=== PATIENT | male | born 1970 | race Caucasian/White ===

== ENCOUNTER 2018-01-19 11:05 | Emergency (ER) | payer BC ==
--- NOTE | 2018-01-19 13:01 | UC ---
General HPI - HPI Summary HPI Summary: pt had his symbicort d/c about 1 month ago by his pcp. he has had increasing cough and chest congestion since with some sob. denies cp but notes throat sore and voice hoarse from the cough. subjective fever. using his albuterol up to 6x' s daily. also notes flare of his low back and L knee pain. no acute injury, taking mobic and would like PT referal. - History of Current Complaint Stated Complaint: SORE THROAT Time Seen by Provider: 01/19/18 12:45 Hx Obtained From: Patient, Family/Gold Stamper Onset/Duration: Gradual Onset Timing: Constant Aggravating: nothing Alleviating: nothing Associated Signs & Symptoms: Positive: Back Pain - chronic, Cough. Negative: Abdominal Pain, Chest Pain, Fever - Allergy/Home Medications Home Medications: Home Medications Acetaminophen [Pain Relief] 1,000 mg PO Q4H PRN 01/19/18 [History Confirmed 03/03] Albuterol HFA INHALER* [Ventolin HFA Inhaler*] 2 puff INH Q4H PRN 01/19/18 [ History Confirmed 01/19/18] Cyclobenzaprine TAB* [Flexeril 10 MG TAB*] 10 mg PO SEE INSTRUCTIONS PRN [History Confirmed 01/19/18] Lidocaine 5% OINT* [Lidocaine*] 5 % EX SEE INSTRUCTIONS PRN 01/19/18 [History Confirmed 01/19/18] Melatonin 5 mg PO BEDTIME PRN 01/19/18 [History Confirmed 01/19/18] Meloxicam 7.5 mg PO BID 01/19/18 [History Confirmed 01/19/18] Terbinafine HCl 250 mg PO SEE INSTRUCTIONS 01/19/18 [History Confirmed 01/19/18] PMH/Surg Hx/FS Hx/Imm Hx - Additional Past Medical History Additional PMH: reactive airways disease, OA, chronic low back and L knee pain. - Surgical History Surgical History: Yes - back, L knee - Family History Known Family History: Positive: Other - [place] - Social History Occupation: Employed Full-time Lives: With Family Substance Use Type: None - Immunization History Vaccination Up to Date: Yes Review of Systems Constitutional: Negative Skin: Negative Eyes: Negative ENT: Sore Throat - from cough Respiratory: Shortness Of Breath, Cough Cardiovascular: Negative Gastrointestinal: Negative Genitourinary: Negative Motor: Negative Neurovascular: Negative Musculoskeletal: Arthralgia - low back, L knee Neurological: Negative Psychological: Negative Is Patient Immunocompromised?: No All Other Systems Reviewed And Are Negative: Yes Physical Exam Triage Information Reviewed: Yes Appearance: Well-Appearing Vital Signs Reviewed: Yes Eyes: Positive: Conjunctiva Clear ENT: Positive: Normal ENT inspection Neck: Positive: Supple, Nontender, No Lymphadenopathy Respiratory: Positive: Lungs clear, Decreased breath sounds, Other: - bronchospastic cough Cardiovascular: Positive: RRR, No Murmur Abdomen Description: Positive: Nontender, No Organomegaly, Soft. Negative: Distended, Guarding Bowel Sounds: Positive: Present Musculoskeletal: Positive: Other: - post op scar low back with paraspinal mm tenderness in lumbar region. spine non tender. no saddle anrsthesia. 5/5 strength and 2+ reflexes x4. L knee scar but no swelling, warmth or discoloration. generalized tenderness. LLE s/v/m intact. Neurological: Positive: Alert Psychological: Positive: Age Appropriate Behavior Skin Exam: Normal Course/Dx - Course Course Of Treatment: flare of chronic back and knee pain thus will refer to pt. RAD flare, will tx with steroid. nothing to indicate bacterial infection. - Differential Dx - Multi-Symptom Provider Diagnoses: Falre of reactive airways disease. flare of chronic low bacvk and L knee pain Discharge - Sign-Out/Discharge Documenting (check all that apply): Discharge/Admit/Transfer - Discharge Plan Condition: Stable Disposition: HOME Prescriptions: predniSONE TAB* [Deltasone TAB*] 40 mg PO DAILY 5 Days #10 tab Patient Education Materials: Reactive Airways Disease (ED), Chronic Pain (ED) Referrals: Debra Rodriguez MD [Primary Care Provider] - 7 Days Additional Instructions: USE ALBUTEROL INHALER 2 PUFFS EVERY 6 HOURS - Billing Disposition and Condition Condition: STABLE Disposition: HOME
[2018-01-19 13:22] VITALS: BP 147/94
== END 2018-01-19 13:38 | disposition home or self-care (01) ==
LOC: UCCORT 11:05
DX: J45.909 Unspecified asthma, uncomplicated (principal); M54.5 Low back pain; M25.562 Pain in left knee
CPT/HCPCS: 99202; G0463

== ENCOUNTER 2018-11-11 09:22 | Emergency (ER) | payer BC, OTHER ==
[2018-11-11 09:57] VITALS: BP 133/73
--- NOTE | 2018-11-11 10:14 | UC ---
UC General HPI - HPI Summary HPI Summary: DAY 3 OF COUGH, SOB AND WHEEZING. TODAY FEELS WARM. + BODYACHES AND THROAT JUST STARTED TO FEEL SCRATCHY. + HX ASTHMA. USING RESCUE INHALER AND NEBULIZER. - History of Current Complaint Chief Complaint: UCRespiratory Stated Complaint: COUGH,CHEST CONGESTION Time Seen by Provider: 11/11/18 10:09 Hx Obtained From: Patient Onset/Duration: Gradual Onset Timing: Constant Pain Intensity: 2 Associated Signs & Symptoms: Negative: Chest Pain - Allergy/Home Medications Allergies/Adverse Reactions: Allergies Allergy/AdvReac Type Severity Reaction Status Date / Time No Known Allergies Allergy Verified 11/11/18 09:50 Home Medications: Home Medications Fluticasone-Salmeterol 250-50* [Advair Diskus 250-50*] 2 puff INH BID 11/11/18 [ History Confirmed 11/11/18] Meloxicam 5 mg PO BID 11/11/18 [History Confirmed 11/11/18] PMH/Surg Hx/FS Hx/Imm Hx Respiratory History: Asthma - Surgical History Surgical History: Yes Surgery Procedure, Year, and Place: L3-L5 spinal fusion. L knee x3 - Family History Known Family History: Positive: Other - [place] - Social History Occupation: Employed Full-time Alcohol Use: Occasionally Substance Use Type: None Smoking Status (MU): Never Smoked Tobacco - Immunization History Vaccination Up to Date: Yes Review of Systems All Other Systems Reviewed And Are Negative: Yes Constitutional: Positive: Negative Skin: Positive: Negative Eyes: Positive: Negative ENT: Negative: Ear Ache, Sinus Congestion Cardiovascular: Positive: Negative Gastrointestinal: Positive: Negative Genitourinary: Positive: Negative Motor: Positive: Negative Neurovascular: Positive: Negative Musculoskeletal: Positive: Myalgia Neurological: Positive: Negative Psychological: Positive: Negative Physical Exam Triage Information Reviewed: Yes Appearance: Well-Appearing Vital Signs: Initial Vital Signs Temp 97.9 F 11/11/18 09:53 Pulse 72 11/11/18 09:53 Resp 18 11/11/18 09:53 BP 133/73 11/11/18 09:53 Pulse Ox 98 11/11/18 09:53 Vital Signs Reviewed: Yes Eyes: Positive: Conjunctiva Clear ENT: Positive: Hearing grossly normal, TMs normal. Negative: Nasal congestion Neck: Positive: Supple, Nontender, No Lymphadenopathy Respiratory: Positive: Lungs clear, No respiratory distress, Decreased breath sounds. Negative: Crackles, Rhonchi, Expiration Cardiovascular: Positive: RRR, No Murmur Abdomen Description: Positive: Nontender, No Organomegaly, Soft Bowel Sounds: Positive: Present Musculoskeletal: Positive: ROM Intact Neurological: Positive: Alert Psychological: Positive: Age Appropriate Behavior Skin Exam: Other - WARM, FLUSHED IN FACE Diagnostics - Laboratory Diagnostic Studies Completed/Ordered: influenza A+ Course/Dx - Diagnoses Provider Diagnosis: Asthma, Influenza A Discharge - Sign-Out/Discharge Documenting (check all that apply): Patient Departure All imaging exams completed and their final reports reviewed: No Studies - Discharge Plan Condition: Stable Disposition: HOME Prescriptions: Albuterol HFA INHALER* [Ventolin HFA Inhaler*] 2 puff INH Q6H #1 mdi Oseltamivir CAP* [Tamiflu CAP*] 75 mg PO BID 5 Days #10 cap predniSONE [Prednisone 20 MG TAB] 40 mg PO DAILY 5 Days #10 tablet Patient Education Materials: Asthma (ED), Influenza (ED) Forms: *Work Release Referrals: Debra Rodriguez MD [Primary Care Provider] - 5 Days - Billing Disposition and Condition Condition: STABLE Disposition: Home
[2018-11-11 10:29] LABS: Influenza A Molecular POSITIVE (Negative)
== END 2018-11-11 10:42 | disposition home or self-care (01) ==
LOC: UCCORT 09:22
DX: J45.909 Unspecified asthma, uncomplicated (principal); J10.1 Influenza due to other identified influenza virus with other respiratory manifestations
CPT/HCPCS: 99212; G0463